=== PATIENT | female | born 1990 | race Asian ===

== ENCOUNTER 2024-04-07 10:14 | Inpatient (IN) ==
[2024-04-07] MEDS ORDERED: Nalbuphine 10 MG/ML 1 ML VIAL IV PRN (11:23)
[2024-04-07] MEDS ORDERED: Prochlorperazine 5 mg/ml 2 ml VIAL (10 mg) IV PRN (11:23)
[2024-04-07] MEDS ORDERED: Lidocaine 1% VIAL 10 MG/ML 30 ML VIAL INJ PRN (11:23)
[2024-04-07] MEDS: Lactated Ringers 1000 ml BAG 1,000 ML IV ONE (11:36)
[2024-04-07 12:18] LABS: ABS Lymphocytes 1.5 10^3/uL (1.0-4.8); ABS Monocytes 0.5 10^3/uL (0.0-0.9); ABS Neutrophils 8.5 10^3/uL (1.5-7.6); ABS Nucleated RBC 0.01 10^3/ul; Eosinophil % 0.2 %; Hematocrit 36.4 % (35-45); Hemoglobin 12.6 g/dL (11.5-14.3); Lymphocyte % 14.4 %; Mean Corpuscular Hemoglobin 27.1 pg (27-33); Mean Corpuscular Hgb Conc 34.8 g/dL (31-36); Mean Corpuscular Volume 77.9 fL (80-97); Nucleated Red Blood Cells % 0.1 %/100WBC (0.0-0.8); Red Blood Count 4.67 10^6/uL (3.63-4.92); Red Cell Distribution Width 16.4 % (12-17); White Blood Count 10.6 10^3/uL (3.8-11.8)
[2024-04-07 12:32] LABS: Urine Benzodiazepine Screen None Detected (None Detect); Urine Cannabinoids Screen None Detected (None Detect); Urine Opiates Screen None Detected (None Detect)
[2024-04-07 12:43] LABS: Mean Platelet Volume 8.9 fL (7.5-11.2); Platelet Count 73 10^3/uL (150-450)
[2024-04-07 13:31] LABS: Hematocrit 36.3 % (35-45); Hemoglobin 12.7 g/dL (11.5-14.3); Mean Corpuscular Hemoglobin 27.1 pg (27-33); Mean Corpuscular Volume 77.4 fL (80-97); Mean Platelet Volume 8.6 fL (7.5-11.2); Platelet Count 73 10^3/uL (150-450); Red Blood Count 4.69 10^6/uL (3.63-4.92); Red Cell Distribution Width 16.3 % (12-17); White Blood Count 11.2 10^3/uL (3.8-11.8)
[2024-04-07 13:53] LABS: Albumin 3.5 g/dL (3.5-5.7); Albumin/Globulin Ratio 1.2 (1-3); Calcium 8.5 mg/dL (8.6-10.3); Creatinine, Serum 0.54 mg/dL (0.51-0.95); Potassium 4.1 mmol/L (3.5-5.0); Total Bilirubin 0.5 mg/dL (0.2-1.0); Total Protein 6.5 g/dL (6.4-8.9); eGFR CKD-EPI 125.4 (>60)
[2024-04-07 13:58] LABS: ABS Lymphocytes 1.8 10^3/uL (1.0-4.8); ABS Monocytes 0.5 10^3/uL (0.0-0.9); ABS Neutrophils 8.8 10^3/uL (1.5-7.6); ABS Nucleated RBC 0.01 10^3/ul; Eosinophil % 0.2 %; Lymphocyte % 16.3 %; Nucleated Red Blood Cells % 0.1 %/100WBC (0.0-0.8)
[2024-04-07 14:14] LABS: Urine Creatinine Concentration 174.51 mg/dL (20.00-320.00); Urine TP Creat Ratio 0.13 mg/mg
[2024-04-07] MEDS: Lactated Ringers 1000 ml BAG 1,000 ML IV SCH (14:20)
[2024-04-07] MEDS: ceFOXitin 2 GM IVPREMIX 2 GM/50 ML BAG IVPB ONE (14:26)
[2024-04-07] MEDS ORDERED: Phenylephrine IV 10 MG/ML 1 ml VIAL ONE (14:29)
[2024-04-07] MEDS ORDERED: Ondansetron 4 mg VIAL 2 MG/ML 2 ml VIAL ONE (14:30)
[2024-04-07] MEDS ORDERED: Morphine PF AMP (0.5MG/ML) 5 MG/10 ML AMP ONE (14:30)
[2024-04-07] MEDS ORDERED: Oxytocin 10 UNITS/ML 1 ML VIAL ONE (14:30)
[2024-04-07] MEDS ORDERED: Metoclopramide 5 MG/ML VIAL (10 mg) IV PRN (15:10)
[2024-04-07] MEDS ORDERED: Ondansetron 4 mg VIAL 2 MG/ML 2 ml VIAL IV PRN (15:10)
[2024-04-07] MEDS ORDERED: Naloxone 0.4 mg VIAL 0.4 mg/ml 1 ml VIAL IV PUSH PRN (15:10)
[2024-04-07] MEDS ORDERED: Acetaminophen IV 1 GM/100ML 1,000 MG/100 ML BAG IV PRN (15:10)
[2024-04-07] MEDS ORDERED: fentaNYL 100 mcg/2 ml 50 MCG/ML VIAL ONE ×2 (15:39→16:01)
[2024-04-07] MEDS ORDERED: Witch Hazel PAD JAR TOPICAL PRN (16:22)
[2024-04-07] MEDS ORDERED: Dibucaine 1% OINT 28.35 GM TUBE PR PRN (16:22)
[2024-04-07] MEDS ORDERED: Glycerin ADULT 2.4 gm SUPP PR PRN (16:22)
[2024-04-07 16:35] LABS: Urine Appearance Clear; Urine Bilirubin Negative (Negative); Urine Blood Negative (Negative); Urine Color Colorless; Urine Glucose Negative (Negative); Urine Ketones Negative (Negative); Urine Nitrite Negative (Negative); Urine Protein Negative (Negative); Urine Specific Gravity 1.005 (1.002-1.030); Urine Urobilinogen Negative (Negative)
[2024-04-07 16:46] LABS: Hematocrit 35.6 % (35-45); Hemoglobin 12.3 g/dL (11.5-14.3); Mean Corpuscular Hemoglobin 27.3 pg (27-33); Mean Corpuscular Hgb Conc 34.5 g/dL (31-36); Mean Corpuscular Volume 79.1 fL (80-97); Mean Platelet Volume 8.4 fL (7.5-11.2); Platelet Count 70 10^3/uL (150-450); Red Cell Distribution Width 16.4 % (12-17); White Blood Count 11.1 10^3/uL (3.8-11.8)
[2024-04-07] MEDS ORDERED: Lactated Ringers 1000 ml BAG 1,000 ML IV SCH (17:00)
[2024-04-07] MEDS: Oxytocin in LR 20,000 MILLI.UNIT/1,000 ML BAG IV SCH (19:31)
[2024-04-07] MEDS: Buffered Lidocaine 1% SYRIN 1 ml INTRADERM ONE (21:59)
[2024-04-08 07:11] LABS: Hematocrit 30.8 % (35-45); Hemoglobin 10.8 g/dL (11.5-14.3); Mean Corpuscular Hemoglobin 27.2 pg (27-33); Mean Corpuscular Volume 77.7 fL (80-97); Red Blood Count 3.96 10^6/uL (3.63-4.92); White Blood Count 11.1 10^3/uL (3.8-11.8)
[2024-04-08 07:53] LABS: ABS Basophils 0.1 10^3/uL (0.0-0.1); ABS Eosinophils 0.1 10^3/uL (0.0-0.5); ABS Lymphocytes 2.7 10^3/uL (1.0-4.8); ABS Monocytes 0.7 10^3/uL (0.0-0.9); ABS Neutrophils 7.7 10^3/uL (1.5-7.6); Eosinophil % 0.5 %; Lymphocyte % 23.9 %; Mean Platelet Volume 8.6 fL (7.5-11.2); Platelet Count 55 10^3/uL (150-450)
[2024-04-09 07:07] LABS: ABS Eosinophils 0.1 10^3/uL (0.0-0.5); ABS Lymphocytes 2.1 10^3/uL (1.0-4.8); ABS Monocytes 0.6 10^3/uL (0.0-0.9); ABS Neutrophils 7.2 10^3/uL (1.5-7.6); Eosinophil % 1.4 %; Hematocrit 30.7 % (35-45); Hemoglobin 10.7 g/dL (11.5-14.3); Lymphocyte % 20.7 %; Mean Corpuscular Hemoglobin 27.5 pg (27-33); Mean Corpuscular Hgb Conc 34.8 g/dL (31-36); Mean Corpuscular Volume 79.2 fL (80-97); Mean Platelet Volume 8.2 fL (7.5-11.2); Platelet Count 75 10^3/uL (150-450); Red Blood Count 3.88 10^6/uL (3.63-4.92); Red Cell Distribution Width 16.3 % (12-17); White Blood Count 10.1 10^3/uL (3.8-11.8)
[2024-04-10 09:52] VITALS: BP 125/69
== END 2024-04-10 16:19 | disposition home or self-care (01) | DRG 540 ==
LOC: MCHOBOUT 10:14 → MCHOB 11:20
PROVIDERS: ADMIT Obstetrics & Gynecology; ATTEND Obstetrics & Gynecology